=== PATIENT | female | born 1940 | race Two or more races ===

== ENCOUNTER 2022-09-15 10:46 | Outpatient (CLI) | payer OTHER | END 2022-09-15 11:00 | disposition home or self-care (01) | LOC: LAB 10:46 | DX: A49.3 Mycoplasma infection, unspecified site (principal); J11.1 Influenza due to unidentified influenza virus with other respiratory manifestations; D50.0 Iron deficiency anemia secondary to blood loss (chronic) ==

== ENCOUNTER 2023-02-26 10:42 | Outpatient (CLI) | payer OTHER | END 2023-02-26 11:00 | disposition home or self-care (01) | LOC: RAD 10:42 | DX: J45.21 Mild intermittent asthma with (acute) exacerbation (principal) ==